=== PATIENT | female | born 1995 | race Caucasian/White ===

== ENCOUNTER 2017-08-21 18:18 | Emergency (ER) | payer OTHER ==
[~2017-08-21] VITALS: Ht 160 cm; Wt 105.0 kg
[~2017-08-21 18:18] MED LIST: DENIES
[2017-08-21 18:38] VITALS: Ht 160 cm; Wt 105.0 kg
[2017-08-21] MEDS ORDERED: ALBUTEROL 0.083% (NEB) 2.5 MG/3 ML AMP HHN STA (19:15)
[2017-08-21] MEDS ORDERED: DEXAMETHASONE 10 MG/ML 1 ML INJ IM ONE (19:30)
[2017-08-21] MEDS ORDERED: ALBU8.5H3 INH (19:44)
[2017-08-21] MEDS ORDERED: PRED20TA PO (19:44)
[2017-08-21] MEDS ORDERED: AZIT250T94 PO (19:44)
--- NOTE | 2017-08-21 19:46 | ERD ---
ER Documentation Chief Complaint Chief Complaint SOB r/o asthma attach - not in distress; with flu like symptoms HPI 21-year-old male complains of wheezing and cough worsening over the last 3 days. She is using her ProAir at home. She also had tactile fevers but no temperature at triage. She has productive sputum as well. She denies chest pain, abdominal pain. She did vomit some mucus one time nonbilious nonbloody. ROS All systems reviewed and are negative except as per history of present illness. Medications Home Meds Active Scripts Albuterol Sulfate* (Proair HFA*) 8.5 Gm Hfa.aer.ad, 2 PUFF INH Q4, #1 INHALER Prov:NELSON CARROLL MD 08/21/17 Prednisone* (Prednisone*) 20 Mg Tab, 40 MG PO DAILY for 4 Days, TAB Start August 22, 2017 Prov:NELSON CARROLL MD 08/21/17 Azithromycin* (Zithromax*) 250 Mg Tablet, 250 MG PO .ZPACK DIRECTED, #6 TAB TAKE 500 MG (2 TABS) THE FIRST DAY THEN 250 MG (1 TAB) DAYS 2-5 Prov:NELSON CARROLL MD 08/21/17 Reported Medications [Denies] No Conflict Check 02/10/11 Allergies Allergies: Coded Allergies: No Known Allergies (Verified Allergy, Mild, 02/10/11) PMhx/Soc Medical and Surgical Hx: pt denies Medical Hx, pt denies Surgical Hx History of Surgery: No Anesthesia Reaction: No Hx Neurological Disorder: No Hx Respiratory Disorders: No Hx Cardiac Disorders: No Hx Psychiatric Problems: No Hx Miscellaneous Medical Probl: No Hx Alcohol Use: No Hx Substance Use: No Hx Tobacco Use: No Smoking Status: Never smoker Physical Exam Vitals Vital Signs Date Time Temp Pulse Resp B/P Pulse Ox O2 Delivery O2 Flow Rate FiO2 08/21/17 19:34 78 20 96 21 08/21/17 18:38 98.6 95 20 157/78 98 Physical Exam Const: [] Alert, [id number]. Head: Atraumatic Eyes: Normal Conjunctiva ENT: Normal External Ears, Nose and Mouth. TMs and oropharynx normal. Neck: Full range of motion..~ No meningismus. Resp: Clear to auscultation bilaterally. Mild forced wheeze and rhonchi without rales or retractions. Cardio: Regular rate and rhythm, no murmurs Abd: Soft, non tender, non distended. Normal bowel sounds Skin: No petechiae or rashes Back: No midline or flank tenderness Ext: No cyanosis, or edema Neur: Awake and alert Psych: Normal Mood and Affect Results 24 hrs Current Medications Medications (Trade) Dose Ordered Sig/[place] Route PRN Reason Start Time Stop Time Status Last Admin Dose Admin Dexamethasone (Decadron) 10 mg ONCE ONCE IM 08/21/17 19:30 08/21/17 19:31 DC 08/21/17 19:27 Albuterol (Proventil 0.083% (Neb)) 2.5 mg ONCE STAT HHN 08/21/17 19:15 08/21/17 19:16 DC 08/21/17 19:33 Procedures/MDM Presents with URI symptoms and mild asthma exacerbation without signs of hypoxemia, respiratory distress. She is given Decadron 10 mg IM and breathing treatment with albuterol by request. Patient will be treated with Zithromax, short course prednisone and refill of pro-air, primary care follow-up and return precautions. The patient was stable with no new complaints during the ER course. Clinically, there is no current evidence to suggest meningitis, sepsis, acute abdomen, pneumonia, acute coronary syndrome, pulmonary embolism, or any other emergent condition appearing to require further evaluation or hospitalization. The patient should certainly return for any new or worsening symptoms per the aftercare instructions. They should otherwise follow-up with her primary care doctor for reevaluation this week. Departure Diagnosis: Primary Impression: URI, acute Additional Impression: Asthma Asthma severity: unspecified severity Asthma persistence: unspecified Asthma complication type: unspecified Qualified Code: J45.909 - Asthma, unspecified asthma severity, unspecified whether complicated, unspecified whether persistent Condition: Stable Patient Instructions: Asthma, Acute (Adult), Bronchitis With Wheezing (Adult) Additional Instructions: Recheck for new or worsening symptoms or primary care doctor. NELSON CARROLL MD Aug 21, 2017 19:46
== END 2017-08-21 20:19 | disposition home or self-care (01) ==
LOC: FTE 18:18
DX: J06.9 Acute upper respiratory infection, unspecified (principal); J45.909 Unspecified asthma, uncomplicated
CPT/HCPCS: 94664; 96372; J1100; Z7502; Z7610